=== PATIENT | male | born 1985 | race Caucasian/White ===

== ENCOUNTER 2016-12-23 23:09 | Emergency (ER) | payer OTHER ==
[~2016-12-23] VITALS: Ht 177.8 cm; Wt 90.7 kg
[2016-12-23 23:47] LABS: BASO % 0.5 % (0.0-1.0); EOS # 0.1 10*3/uL (0.0-0.4); EOS % 3.1 % (1.0-4.0); HEMOGLOBIN 10.4 g/dl (14.0-18.0); LYMPH # 2.7 10*3/uL (1.3-4.4); LYMPH % 62.9 % (27.0-41.0); MEAN CORPUSCULAR HGB 29.7 pg (27.0-31.0); MEAN CORPUSCULAR HGB CONC 29.7 g/dl (33.0-37.0); MEAN PLATELET VOLUME 11.4 fl (9.6-12.3); MONO # 0.6 10*3/uL (0.1-1.0); MONO % 14.2 % (3.0-9.0); NEUT # 0.6 10*3/uL (2.3-7.9); NEUT % 14.3 % (47.0-73.0); NUCLEATED RED BLOOD CELL 0.1 10*3/uL (0.0-0.0); NUCLEATED RED BLOOD CELL 1.4 % (0.0-0.0); PLATELET COUNT AUTOMATED 213 10*3/uL (130-400); RED CELL DISTRI WIDTH 12.8 % (0-14.5); WHITE BLOOD COUNT 4.2 10*3/uL (4.8-10.8)
[2016-12-23 23:56] LABS: INTERNATIONAL NORM RATIO 1.1 (2.0-3.5)
[2016-12-23 23:56] LABS: BILIRUBIN NEGATIVE (NEGATIVE); BLOOD NEGATIVE (NEGATIVE); CLARITY SL CLOUDY (CLEAR); GLUCOSE NEGATIVE (NEGATIVE); KETONE NEGATIVE (NEGATIVE); LEUKO ESTERASE 1+ (NEGATIVE); NITRITE NEGATIVE (NEGATIVE); SPECIFIC GRAVITY <= 1.005 (1.005-1.030); UROBILINOGEN 0.2 E.U./dl (0.2-1.0)
[2016-12-23 23:57] LABS: COLOR YELLOW (YELLOW)
[2016-12-24 00:04] LABS: ALBUMIN 2.8 gm/dl (3.1-4.5); ALKALINE PHOSPHATASE 62 U/L (45-117); BUN 11 mg/dl (7-24); CHLORIDE 103 mmol/L (98-107); CREATININE 1.27 mg/dL (0.70-1.30); LIPASE 159 U/L (73-393); MAGNESIUM 2.4 mg/dL (1.5-2.1); POTASSIUM 5.9 mmol/L (3.5-5.1); SGOT/AST 149 IU/L (3-35); SGPT/ALT 164 U/L (12-78); SODIUM 151 mmol/L (136-145); TOTAL PROTEIN 5.3 gm/dL (6.4-8.2)
[2016-12-24 00:04] LABS: BACTERIA 1+
[2016-12-24 00:05] LABS: ETHYL ALCOHOL < 3.0 mg/dl (<3); TROPONIN I 0.021 ng/ml (<0.045)
[2016-12-24 00:08] LABS: URINE AMPHETAMINES < 1000 (1000ng/ml); URINE BARBITURATES < 200 (200ng/ml); URINE BENZODIAZEPINES < 200 (200ng/ml); URINE CANNABINOIDS (THC) < 50 (50ng/ml); URINE COCAINE < 300 (300ng/ml); URINE METHADONE < 300 (300ng/ml); URINE OPIATES < 300 (300ng/ml)
[2016-12-24 00:15] LABS: ATYPICAL LYMPHS 2 % (0-0); BASOPHILS 1 % (0-1); PLATELET SUFFICIENCY NORMAL (NORMAL); TOTAL CELLS COUNTED 100 #CELLS
[2016-12-24 00:16] LABS: BURR CELLS FEW
[2016-12-24 00:17] LABS: URINE PHENCYCLIDINE < 25 (25ng/ml)
== END 2016-12-24 06:01 | disposition expired ==
LOC: ED 23:09
PROVIDERS: Emergency Medicine Emergency Medical Services
DX: I46.9 Cardiac arrest, cause unspecified (principal)